=== PATIENT | male | born 1975 | race Caucasian/White ===

== ENCOUNTER 2019-02-12 12:32 | Emergency (ER) | payer SELFPAY ==
[~2019-02-12] VITALS: Wt 88.6 kg
[2019-02-12 12:56] VITALS: BP 127/70; PULSE 92; RESP 20
== END 2019-02-12 13:50 | disposition left against medical advice (07) ==
LOC: E/R 12:32
DX: Z53.21 Procedure and treatment not carried out due to patient leaving prior to being seen by health care provider (principal)

== ENCOUNTER 2019-03-26 11:45 | Emergency (ER) | payer BC ==
[~2019-03-26] VITALS: Ht 172.7 cm; Wt 88.5 kg
[~2019-03-26 11:45] MED LIST: CARAS PO; DOCU-144 PO; ERGO500013 PO; FOLI-49 PO; MULT-551 PO; OMEG1CAP2 PO; PANT40TA4 PO; THIA100T56 PO
[2019-03-26 11:51] VITALS: Ht 172.7 cm; Wt 88.5 kg
--- NOTE | 2019-03-26 14:20 | ERD ---
ER Documentation Chief Complaint Chief Complaint right leg bruising/swelling/edema, yellowish sclerae, jaundice HPI 43-year-old male presents the emergency department complaining of right lower extremity bruising and swelling. Patient has a chronic history of cirrhosis of the liver and anemia. He states that a few days ago he was exercising when he felt like he "pulled his hamstring." After the injury, he treated the injury with heat and further walking. Subsequent to this, he began having increasing ecchymosis of the right inner thigh area around where he felt like he pulled his muscle. This then began to spread. He presents to the emergency department today complaining of right lower extremity swelling and bruising. He denies severe pain and tells me that it is not uncomfortable. He reports no numbness, tingling. ROS All systems reviewed and are negative except as per history of present illness. Medications Home Meds Reported Medications [place]-3 Acid Ethyl Esters (Lovaza) 1 Gm Capsule, 2 GM PO BID, CAP 03/26/19 Ergocalciferol (Vitamin D2) (VITAMIN D2) 50,000 Unit Capsule, 35594 UNIT PO Q7D, CAP 03/26/19 Allergies Allergies: Coded Allergies: No Known Allergy (Unverified , 03/26/19) PMhx/Soc Medical and Surgical Hx: pt denies Medical Hx, pt denies Surgical Hx Hx Alcohol Use: Yes Hx Substance Use: No Smoking Status: Never smoker Physical Exam Vitals Vital Signs Date Temp Pulse Resp B/P (MAP) Pulse Ox O2 O2 Flow FiO2 Time Delivery Rate 03/26/19 99.9 100 25 163/80 98 11:51 (107) Physical Exam GENERAL: The patient is well developed and appropriate for usual state of health in no apparent distress HEENT: Pupils equal round and reactive to light. Extraocular movements are intact. There is scleral icterus NECK: C-spine is soft and supple, there is no meningismus. There is no cervical lymphadenopathy. LUNGS: Clear to auscultation bilaterally. There are no rales, wheezes or rhonchi. HEART: Regular rate and rhythm, no murmurs, clicks, rubs or gallops. ABDOMEN: Soft, non-tender, non-distended. There are bowel sounds in all four quadrants. No rebound or guarding. No right upper quadrant tenderness EXTREMITIES: Right lower extremity is significantly swollen with ecchymosis. Compartments are slightly swollen, but compressible and nontender. Patient has full range of motion about the knee ankle and toes without discomfort. NEURO: The patient moves all four extremities with 5/5 strength. Cranial nerves II - XII are intact. Normal gait. Alert and oriented SKIN: There is no apparent rash or petechiae. HEME/LYMPHATIC: There is significant ecchymosis to the right lower extremity involving the thigh and the tib-fib area PSYCHIATRIC: The patient does not appear anxious or depressed. Result Diagram: 03/26/19 1312 03/26/19 1312 Results 24 hrs Laboratory Tests Test 03/26/19 13:11 03/26/19 13:12 Prothrombin Time 20.5 Sec Prothrombin Time Ratio 1.6 INR International Normalized Ratio 1.75 Activated Partial Thromboplast Time 40.8 Sec White Blood Count 6.8 10^3/ul Red Blood Count 2.69 10^6/ul Hemoglobin 7.8 g/dl Hematocrit 23.8 % Mean Corpuscular Volume 88.5 fl Mean Corpuscular Hemoglobin 29.0 pg Mean Corpuscular Hemoglobin Concent 32.8 g/dl Red Cell Distribution Width 19.5 % Platelet Count 69 10^3/UL Mean Platelet Volume 10.3 fl Immature Granulocytes % 0.600 % Neutrophils % 60.1 % Lymphocytes % 20.8 % Monocytes % 14.4 % Eosinophils % 2.8 % Basophils % 1.3 % Nucleated Red Blood Cells % 0.0 /100WBC Immature Granulocytes # 0.040 10^3/ul Neutrophils # 4.1 10^3/ul Lymphocytes # 1.4 10^3/ul Monocytes # 1.0 10^3/ul Eosinophils # 0.2 10^3/ul Basophils # 0.1 10^3/ul Nucleated Red Blood Cells # 0.0 10^3/ul Sodium Level 138 mmol/L Potassium Level 3.8 mmol/L Chloride Level 105 mmol/L Carbon Dioxide Level 23 mmol/L Anion Gap 10 Blood Urea Nitrogen 11 mg/dl Creatinine 0.61 mg/dl Est Glomerular Filtrat Rate mL/min > 60 mL/min Glucose Level 115 mg/dl Calcium Level 8.8 mg/dl Total Bilirubin 4.3 mg/dl Direct Bilirubin 0.50 mg/dl Indirect Bilirubin 3.8 mg/dl Aspartate Amino Transf (AST/SGOT) 139 IU/L Alanine Aminotransferase (ALT/SGPT) 52 IU/L Alkaline Phosphatase 157 IU/L Total Protein 9.2 g/dl Albumin 3.9 g/dl Globulin 5.30 g/dl Albumin/Globulin Ratio 0.73 Procedures/MDM Patient was taken to a room, seen and evaluated. Comfort measures were initiated. Diagnostic tests were ordered and reviewed. REEVALUATION: 1415: Diagnostic tests were appreciated. These were discussed with the patient. Specifically, I discussed his blood counts, which she stated were essentially at baseline for him. He felt clinically comfortable was able to be discharged home. [employer]KIN-year-old male presents to the emergency department with right lower extremity swelling and ecchymosis. This appears to be related to a hamstring pull with bleeding into the extremity. This is complicate a by coagulopathy related to his cirrhosis. His INR is elevated but does not require FFP transfusion, his platelet count is low but does not require platelet transfusion. He has no indications of ongoing bleeding and tells me that the swelling and ecchymosis is starting to improve over the last 24 hours. He has no indications of compartment syndrome. I have provided precautionary instructions and of asked him to have a recheck of his blood counts within the next 2 days. Patient will be placed on crutches but otherwise appears to be appropriate for outpatient supportive management. Departure Diagnosis: Primary Impression: Contusion Condition: Stable Patient Instructions: Cirrhosis, Contusion, Lower Extremity Additional Instructions: See your doctor for follow-up as discussed. Take a copy of your test results, if appropriate, to this follow-up visit. See your doctor or return here if your symptoms do not improve as expected. At any time, please return to the emergency department for any change or worsening in her symptoms. BHAVESH SHAFFER Mar 26, 2019 14:20
[2019-03-26 14:26] VITALS: BP 156/78; PULSE 98; RESP 20
== END 2019-03-26 14:29 | disposition home or self-care (01) ==
LOC: E/R 11:45
DX: S80.11XA Contusion of right lower leg, initial encounter (principal); X50.1XXA Overexertion from prolonged static or awkward postures, initial encounter; Y92.9 Unspecified place or not applicable
CPT/HCPCS: 80053; 85025; 85610; 85730; 86850; 86900; 86901; 99283

== ENCOUNTER 2019-03-28 06:41 | Inpatient (IN) | payer BC ==
[~2019-03-28] VITALS: Ht 172.7 cm; Wt 86.0 kg
[2019-03-28] MEDS ORDERED: ONDANSETRON 4 MG INJ IV STA (07:03)
[2019-03-28] MEDS ORDERED: SOD CHLORIDE 0.9% 1,000 ML IV STA (07:03)
[2019-03-28] MEDS ORDERED: morphine 4 MG/ML VIAL IV STA (07:03)
[2019-03-28] MEDS ORDERED: ACETAMINOPHEN 325 MG TAB PO PRN ×2 (08:00→10:00)
[2019-03-28] MEDS ORDERED: ONDANSETRON 4 MG INJ IV PRN ×2 (08:00→10:00)
[2019-03-28] MEDS ORDERED: SOD CHLORIDE 0.9% 1,000 ML IV SCH (09:55)
[2019-03-28] MEDS ORDERED: BISACODYL (EC) 5 MG TAB PO PRN (10:00)
[2019-03-28] MEDS ORDERED: NACL 0.9% 3 ML SYG IV SCH (10:00)
[2019-03-28] MEDS: HYDROmorphONE 1 MG/ML SYG IV PRN ×3 (10:12→20:50)
[2019-03-28] MEDS ORDERED: VANCOMYCIN IV PER PHARMACY XX SCH (10:30)
[2019-03-28] MEDS ORDERED: SOD CHLORIDE 0.9% 250 ML IV* ONE ×2 (11:06→15:20)
[2019-03-28 11:38] VITALS: Ht 172.7 cm; Wt 86.0 kg
[2019-03-28] MEDS ORDERED: VANCOMYCIN HCL 1.75 GM in SOD CHLORIDE 0.9% 500 ML IVPB ONE (12:00)
[2019-03-28] MEDS: PIPER-TAZO 3.375 GM IV (PMX) 100 ML IVPB SCH ×2 (12:10→20:46)
[2019-03-28 15:25] VITALS: BP 134/68; PULSE 80; RESP 19
[2019-03-28] MEDS ORDERED: PHYTONADIONE 10 MG in DEXTROSE 5% 50 ML IVPB ONE (16:30)
[2019-03-28] MEDS ORDERED: PHYTONADIONE 10 MG/ML INJ SC ONE (18:00)
[2019-03-28] MEDS ORDERED: SODIUM BICARBONATE (IV ADD) 50 MEQ in SOD CHLORIDE 0.45% 1,000 ML IV SCH (18:30)
[2019-03-28 19:58] VITALS: BP 144/78; PULSE 85; RESP 20
[2019-03-28] MEDS: SODIUM BICARBONATE (IV ADD) 50 MEQ in SOD CHLORIDE 0.45% 1,000 ML IV SCH (21:59)
[2019-03-28] MEDS: HYDROCODONE/APAP (5/325) TAB PO PRN (22:11)
[2019-03-29] MEDS: VANCOMYCIN 1 GM 250 ML IVPB SCH ×3 (00:16→16:51)
[2019-03-29] MEDS: HYDROmorphONE 1 MG/ML SYG IV PRN (01:55)
[2019-03-29] MEDS: PIPER-TAZO 3.375 GM IV (PMX) 100 ML IVPB SCH ×5 (02:45→23:33)
[2019-03-29 07:36] VITALS: BP 145/75; PULSE 95; RESP 16
[2019-03-29] MEDS: THIAMINE 100 MG TAB PO SCH (08:23)
[2019-03-29] MEDS: HYDROCODONE/APAP (5/325) TAB PO PRN ×3 (08:24→22:38)
[2019-03-29] MEDS: PHYTONADIONE (1 MG/ML PO SYG) PO SCH (08:56)
[2019-03-29] MEDS: SODIUM BICARBONATE (IV ADD) 50 MEQ in SOD CHLORIDE 0.45% 1,000 ML IV SCH ×2 (13:34→19:00)
[2019-03-29 14:44] VITALS: BP 131/61; PULSE 99; RESP 18
[2019-03-29] MEDS ORDERED: BARIUM SULF 2% 450 ML BTL (BERRY SMOOTHIE) PO ONE (16:30)
[2019-03-29 19:38] VITALS: BP 126/60; PULSE 98; RESP 18
[2019-03-30] VITALS (43 sets, daily range): BP systolic 101–137; BP diastolic 36–97; PULSE 79–107; RESP 13–30
[2019-03-30] MEDS: VANCOMYCIN 1.25 GM/NS 250 ML 250 ML IVPB SCH ×3 (00:56→18:45)
[2019-03-30] MEDS: HYDROCODONE/APAP (5/325) TAB PO PRN (04:06)
[2019-03-30] MEDS: SODIUM BICARBONATE (IV ADD) 50 MEQ in SOD CHLORIDE 0.45% 1,000 ML IV SCH ×2 (05:00→12:17)
[2019-03-30] MEDS: HYDROmorphONE 1 MG/ML SYG IV PRN ×2 (05:08→16:36)
[2019-03-30] MEDS: PIPER-TAZO 3.375 GM IV (PMX) 100 ML IVPB SCH ×3 (06:25→17:20)
[2019-03-30] MEDS: THIAMINE 100 MG TAB PO SCH (09:08)
[2019-03-30] MEDS: PHYTONADIONE (1 MG/ML PO SYG) PO SCH (10:25)
[2019-03-30] MEDS: OCTREOTIDE 500 MCG in DEXTROSE 5% 49 ML IV SCH (13:03)
[2019-03-30] MEDS: FUROSEMIDE 20 MG INJ IV SCH ×3 (13:23→16:35)
[2019-03-30] MEDS ORDERED: PANTOPRAZOLE IV 80 MG in SOD CHLORIDE 0.9% 100 ML IVPB ONE (13:30)
[2019-03-30] MEDS: PANTOPRAZOLE IV 80 MG in SOD CHLORIDE 0.9% 100 ML IV SCH ×2 (13:59→23:18)
[2019-03-30] MEDS ORDERED: LIDOCAINE 2% (SDV) 5 ML INJ ONE (17:55)
[2019-03-30] MEDS ORDERED: ETOMIDATE 20 MG INJ ONE (17:55)
[2019-03-30] MEDS ORDERED: MIDAZOLAM 1 MG/ML 2 ML INJ ONE (17:56)
[2019-03-30] MEDS ORDERED: PHENYLephrine (100 MCG/ML) 10ML SYG ONE (18:25)
[2019-03-30] MEDS ORDERED: PROPOFOL 20 ML ONE (18:25)
[2019-03-30] MEDS ORDERED: FUROSEMIDE 20 MG INJ IV ONE (18:30)
[2019-03-30] MEDS ORDERED: ONDANSETRON 4 MG INJ IV PRN (19:30)
[2019-03-31] VITALS (27 sets, daily range): BP systolic 97–157; BP diastolic 49–118; PULSE 71–90; RESP 13–27
[2019-03-31] MEDS: SODIUM BICARBONATE (IV ADD) 50 MEQ in SOD CHLORIDE 0.45% 1,000 ML IV SCH ×2 (00:22→12:44)
[2019-03-31] MEDS: PIPER-TAZO 3.375 GM IV (PMX) 100 ML IVPB SCH ×5 (00:22→23:49)
[2019-03-31] MEDS ORDERED: FUROSEMIDE 20 MG INJ ONE (05:05)
[2019-03-31] MEDS ORDERED: FUROSEMIDE 20 MG INJ IV SCH (05:05)
[2019-03-31] MEDS: OCTREOTIDE 500 MCG in DEXTROSE 5% 49 ML IV SCH (08:30)
[2019-03-31] MEDS: PHYTONADIONE (1 MG/ML PO SYG) PO SCH (08:37)
[2019-03-31] MEDS: THIAMINE 100 MG TAB PO SCH (08:37)
[2019-03-31] MEDS: VANCOMYCIN 1.25 GM/NS 250 ML 250 ML IVPB SCH ×3 (08:38→16:18)
[2019-03-31] MEDS ORDERED: POTASSIUM CHLORIDE 20 MEQ POWDER FOR ORAL SOLN PO PRN ×3 (09:00)
[2019-03-31] MEDS: PANTOPRAZOLE IV 80 MG in SOD CHLORIDE 0.9% 100 ML IV SCH (10:20)
[2019-03-31] MEDS ORDERED: PEG/ELECTROLYTES 4L BTL PO ONE ×2 (10:30→12:00)
[2019-03-31] MEDS: SUCRALFATE (100 MG/ML) 10ML CUP PO SCH ×3 (14:30→20:10)
[2019-03-31] MEDS: DOCUSATE SODIUM 100 MG CAP PO SCH (14:30)
[2019-03-31] MEDS: PANTOPRAZOLE 40 MG INJ IV SCH (17:21)
[2019-03-31] MEDS: HYDROCODONE/APAP (5/325) TAB PO PRN (20:10)
[2019-04-01] VITALS (11 sets, daily range): BP systolic 107–123; BP diastolic 57–66; PULSE 68–82; RESP 17–20
[2019-04-01] MEDS: VANCOMYCIN 1.25 GM/NS 250 ML 250 ML IVPB SCH ×3 (01:19→16:12)
[2019-04-01] MEDS: PIPER-TAZO 3.375 GM IV (PMX) 100 ML IVPB SCH ×2 (05:42→12:40)
[2019-04-01] MEDS: PANTOPRAZOLE 40 MG INJ IV SCH ×2 (05:42→18:18)
[2019-04-01] MEDS: SUCRALFATE (100 MG/ML) 10ML CUP PO SCH ×4 (08:49→20:17)
[2019-04-01] MEDS: THIAMINE 100 MG TAB PO SCH (08:49)
[2019-04-01] MEDS: DOCUSATE SODIUM 100 MG CAP PO SCH (08:49)
[2019-04-01] MEDS ORDERED: MAGNESIUM SULFATE 2 GM/50 ML 50 ML IVPB ONE (15:30)
[2019-04-01] MEDS ORDERED: FENTAnyl 50 MCG/ML VIAL ONE (17:28)
[2019-04-01] MEDS ORDERED: MIDAZOLAM 1 MG/ML 2 ML INJ ONE ×2 (17:28)
[2019-04-01] MEDS: HYDROCODONE/APAP (5/325) TAB PO PRN (20:48)
[2019-04-02 02:25] VITALS: BP 113/58; PULSE 84; RESP 18
[2019-04-02] MEDS ORDERED: PANTOPRAZOLE (EC) 40 MG TAB PO SCH (06:00)
[2019-04-02 08:17] VITALS: BP 121/74; PULSE 86; RESP 19
[2019-04-02] MEDS: DOCUSATE SODIUM 100 MG CAP PO SCH (08:51)
[2019-04-02] MEDS: SUCRALFATE (100 MG/ML) 10ML CUP PO SCH ×2 (08:51→12:21)
[2019-04-02] MEDS: THIAMINE 100 MG TAB PO SCH (08:51)
[2019-04-02 14:00] VITALS: BP 121/69; PULSE 91; RESP 19
== END 2019-04-02 15:58 | disposition home or self-care (01) | DRG 556 ==
LOC: E/R 06:41 → MS1 08:01 → ICU 03-30 09:42 → PP2 03-31 20:54
PROVIDERS: ADMIT Internal Medicine; ATTEND Family Medicine
PROC: 30233N1 Transfusion of Nonautologous Red Blood Cells into Peripheral Vein, Percutaneous Approach (ICD-10-PCS; 2019-03-28)
PROC: 30233K1 Transfusion of Nonautologous Frozen Plasma into Peripheral Vein, Percutaneous Approach (ICD-10-PCS; 2019-03-28)
PROC: 02HV33Z Insertion of Infusion Device into Superior Vena Cava, Percutaneous Approach (ICD-10-PCS; 2019-03-30)
PROC: B548ZZA Ultrasonography of Superior Vena Cava, Guidance (ICD-10-PCS; 2019-03-30)
PROC: 0DJD8ZZ Inspection of Lower Intestinal Tract, Via Natural or Artificial Opening Endoscopic (ICD-10-PCS; 2019-04-01)
PROC: 0W3P8ZZ Control Bleeding in Gastrointestinal Tract, Via Natural or Artificial Opening Endoscopic (ICD-10-PCS; principal; 2019-04-01 17:00)
DX: M79.81 Nontraumatic hematoma of soft tissue (principal); M62.82 Rhabdomyolysis; D68.9 Coagulation defect, unspecified; R65.10 Systemic inflammatory response syndrome (SIRS) of non-infectious origin without acute organ dysfunction; S86.821A Laceration of other muscle(s) and tendon(s) at lower leg level, right leg, initial encounter; M25.061 Hemarthrosis, right knee; K76.6 Portal hypertension; D62 Acute posthemorrhagic anemia; M25.08 Hemarthrosis, other specified site; D69.6 Thrombocytopenia, unspecified; E83.42 Hypomagnesemia; R16.1 Splenomegaly, not elsewhere classified; K70.30 Alcoholic cirrhosis of liver without ascites; F10.10 Alcohol abuse, uncomplicated; K80.20 Calculus of gallbladder without cholecystitis without obstruction; D63.8 Anemia in other chronic diseases classified elsewhere; M79.A21 Nontraumatic compartment syndrome of right lower extremity
CPT/HCPCS: 36415; 36430; 73700; 73718; 74176; 74181; 76705; 80048; 80053; 80061; 80202; 81003; 82105; 82140; 82390; 82525; 82550; 82553; 82607; 82728; 83010; 83036; 83540; 83615; 83690; 83735; 84100; 84443; 84484; 85014; 85018; 85025; 85384; 85610; 85651; 85730; 86038; 86255; 86301; 86704; 86709; 86803; 86850; 86900; 86901; 86920; 87081; 87086; 87340; 93971; 96374; 96375; C9113; J1170; J1940; J2250; J2270; J2354; J2370; J2405; J2543; J3010; J3370; J3475; J7030; J7040; P9016; P9059